=== PATIENT | male | born 1955 | race Caucasian/White ===

== ENCOUNTER 2023-09-25 13:19 | Inpatient (IN) | payer OTHER, SELFPAY ==
[2023-09-25 10:01] VITALS: BP 145/69
[2023-09-25 10:35] VITALS: BP 168/64
--- NOTE | 2023-09-25 10:41 | ED.GENMED ---
History of Present Illness
General
Chief Complaint: Skin Problem
Source: patient
Exam Limitations: none
Time Seen by Provider: 09/25/23 10:07
Nursing documentation reviewed up to this point in time: agreed with
Travel History
Have you had any contact with someone who has COVID-19?: No
Do you have any symptoms of coronavirus? Fever > 100 degrees, chills, cough, shortness of breath, sore throat, loss of taste or smell, muscle aches, or headache?: No
History of Present Illness
History of Present Illness:
68-year-old male with past medical history of diabetes hypertension hyperlipidemia previous smoker presenting to the emergency department today for concerns of redness swelling and discomfort to the left foot worsening over the past 3 days. Has had
a chronic ulcer for multiple weeks managed by podiatry but worsening over the past few days no systemic symptoms but the redness and swelling has been moving into his carrasco. Denies chest pain shortness of breath fevers or additional concerns
otherwise.
Past History
Past History
ED Past Medical History: Arrthythmia (A. fib), CHF and Other (Aortic stenosis)
ED Past Surgical History: None
Social History
Tobacco: Non-smoker
Personal: Single
Living: alone
Review of Systems
Review of Systems
Allergies reviewed?: Yes
All Other Systems: ROS reviewed and negative except as documented in HPI and ROS
Phy Exam
Physical Exam
Physical Exam:
GENERAL: Alert , in no apparent distress
EYE: pupils equal and reactive
NECK: Supple, no significant adenopathy.
ENT: o/p clr, mmm.
CARDIAC: Regular rate and rhythm .
LUNGS: Clear breath sounds bilaterally, no acute respiratory distress, no wheezes/rales/rhonchi
ABDOMEN: Soft, without focal tenderness, no r/g, no cvat
NEUROLOGICAL: Alert and oriented, no focal neuro deficits
SKIN: Ulcer to the left sole of the foot on the lateral aspect 1 cm in diameter. Warm and dry, skin intact.
MUSCULOSKELETAL: No edema, well perfused.
PSYCH: Normal and appropriate interaction.
Course
Orders/Labs/Results
Orders:
Orders
09/25/23 10:34
CR Foot - Left Min 3 Views Urgent
Comment:
Reason For Exam: foot infection
09/25/23 10:45
CRP [C-Reactive Protein] Urgent
Complete Blood Count/With Diff Urgent
Comprehensive Metabolic Panel Urgent
ESR [Erythrocyte Sed Rate] Urgent
Lactic Acid Urgent
Blood Culture Q30M
QUITA Source: Blood/Venous
Specimen Description:
Blood Culture Q30M
QUITA Source: Blood/Venous
Specimen Description:
Wound Culture [Wound/Abscess/Other Culture] Urgent
QUITA Source: Foot
Specimen Description: Left
Date Specimen was Collected: 09/25/23
Time Specimen was Collected: 10:42
09/25/23 10:51
CeFAZolin 2 GRAM [Ancef] 2 grams in 10 ml IV NOW
Abnormal Lab Results
09/25/23
10:45
WBC 13.0 H 10^3/uL
(4.8-10.8)
RBC 3.61 L 10^6/uL
(4.70-6.10)
Hgb 10.5 L g/dL
(13.0-18.0)
Hct 29.9 L %
(39.0-52.0)
RDW 14.6 H %
(11.5-14.5)
Abs Immat Gran (auto) 0.1 H 10^3/uL
(0-0.05)
Absolute Neuts (auto) 10.7 H 10^3/uL
(1.4-6.5)
Absolute Monos (auto) 0.8 H 10^3/uL
(0.1-0.6)
Immature Gran % 0.6 H %
(0-0.5)
Neutrophils % 82.6 H %
(42.2-75.2)
Lymphocytes % 9.8 L %
(20.5-51.1)
ESR 65 H mm/hour
(0-20)
BUN 38 H mg/dl
(9-20)
Creatinine 2.1 H mg/dL
(0.7-1.3)
Glucose 202 H mg/dl
(70-99)
C-Reactive Protein 204.50 H mg/L
(0.0-10.00)
09/25/23 10:45
09/25/23 10:45
Vital Signs
Initial and Last Documented VS:
Initial Vital Signs
Temp Pulse Resp BP Pulse Ox
98.3 F 58 18 145/69 98
09/25/23 10:01 09/25/23 10:01 09/25/23 10:01 09/25/23 10:01 09/25/23 10:01
Last Documented Vital Signs
Temp Pulse Resp BP Pulse Ox
98.3 F 58 18 168/64 98
09/25/23 10:01 09/25/23 10:01 09/25/23 10:01 09/25/23 10:35 09/25/23 10:01
MDM/Problems Addressed
MDM/Problems Addressed:
5-year-old male presenting to the emergency department today with concerns of infection to left foot with redness swelling throughout the foot extending into the anterior carrasco with streaking. No systemic symptoms afebrile vital signs otherwise
normal other than slightly elevated blood pressure white blood cell count of 13.0 glucose low 202 creatinine is 2.1 which is slightly above patient's baseline significantly elevated CRP. Patient's ulcer was cultured blood culture sent Case was
discussed with patient's podiatry team will manage for further treatment and monitoring.
*Critical Care Note
Total Time (30-74mins, 75-104mins- exclusive of procedures): Not Applicable
ED Attending Note
-
Portions of this chart may have been created with voice recognition software.� Occasional wrong word or��sound alike� substitutions may have occurred due to the inherent limitations of voice recognition software.
Discharge Plan
Departure
Patient Disposition: Admit
Date of Disposition: 09/25/23
Time of Disposition: 11:47
Admit to: Med/Surg
Admit to doctor: Obrien
Presentation/result/management discussed w/ accepting MD/DO: Hospitalist
Patient with high blood pressure during this ER visit?: No
Condition: Good
Covid-19: Not Applicable
Discharge Problem:
Diabetic foot ulcer, Cellulitis
Prescriptions:
No Action
metformin 1,000 MG tablet
1,000 mg PO BID
atorvastatin 40 MG tablet
40 mg PO DAILY
loratadine 10 MG tablet
10 mg PO DAILYPRN PRN (Reason: ALLERGY SYMPTOMS)
chlorthalidone 50 mg Tablet
50 mg PO DAILY
cyanocobalamin (vitamin B-12) 500 mcg Tablet
1,000 mcg PO LOUIS@2200
ferrous sulfate [FeroSul] 325 mg (65 mg iron) Tablet
325 mg PO Q48H@0800
clotrimazole-betamethasone 1-0.05 % Cream
1 applic TOPICAL DAILY
losartan 100 mg Tablet
100 mg PO HS
insulin glargine [Basaglar KwikPen U-100 Insulin] 100 unit/mL (3 mL) Insulin Pen
75 unit SC HS
Referrals:
Diandra Burr MD [Family Provider] -
Interventions
Interventions:
*Risk Screen - Suicide Last Done: 09/25/23 10:01
*General Assessment Last Done: 09/25/23 10:01
*Neglect/Abuse Screening Last Done: 09/25/23 10:01
ED-Skin Assessment Last Done: 09/25/23 10:32
Discharge Date and Time
Print Language: ROMANSH
[2023-09-25 10:55] LABS: % Basophils 0.2 % (0-2); % Eosinophils 0.4 % (0-6); % Immature Granulocytes 0.6 % (0-0.5); % Lymphocytes 9.8 % (20.5-51.1); % Monocytes 6.4 % (1.7-9.3); % Neutrophils 82.6 % (42.2-75.2); Absolute Eosinophils 0.1 10^3/uL (0-0.7); Absolute Immature Granulocytes 0.1 10^3/uL (0-0.05); Absolute Lymphocytes 1.3 10^3/uL (1.2-3.4); Absolute Monocytes 0.8 10^3/uL (0.1-0.6); Absolute Neutrophils 10.7 10^3/uL (1.4-6.5); Hematocrit 29.9 % (39.0-52.0); Hemoglobin 10.5 g/dL (13.0-18.0); Mean Corp Hgb Conc. 35.1 g/dL (33.0-37.0); Mean Corpuscular Hgb 29.1 pg (27.0-31.0); Mean Corpuscular Volume 82.8 fL (80.0-94.0); Nucleated Red Blood Cells % 0 % (-); Platelet Count 198 10^3/uL (130-400); Red Blood Cell Count 3.61 10^6/uL (4.70-6.10); Red Cell Dist. Width 14.6 % (11.5-14.5)
[2023-09-25] MEDS: ANCEF 10 IV (10:58)
[2023-09-25 11:05] LABS: Lactic Acid 1.9 mmol/L (0.7-2.0)
[2023-09-25 11:11] LABS: ALT (SGPT) 18 U/L (0-50); AST (SGOT) 18 U/L (17-59); Albumin 3.9 g/dl (3.5-5.0); Alkaline Phosphatase 84 U/L (38-126); Blood Urea Nitrogen 38 mg/dl (9-20); Calcium 8.8 mg/dl (8.4-10.2); Carbon Dioxide 24 mmol/L (22-30); Chloride 102 mmol/L (98-107); Glucose 202 mg/dl (70-99); Potassium 3.7 mmol/L (3.5-5.1); Sodium 136 mmol/L (135-145); Total Bilirubin 0.9 mg/dl (0.2-1.3); Total Protein 6.9 g/dl (6.3-8.2); eGFR 33.24
[2023-09-25 11:27] LABS: Erythrocyte Sed Rate 65 mm/hour (0-20)
--- NOTE | 2023-09-25 12:46 | HPS.HSE ---
Family Physician
-
Family Physician: Diandra Burr MD
Chief Complaint
-
Left foot swelling, redness, chills
History of Present Illness
68 yo male with DM2, neuropathy, previous left foot plantar wound infection (treated 6 yrs ago), returns with 1 month long hx left foot plantar wound. Completed a course of oral antibiotics recently, went back to see asset management lead today and referred to
ER due to ongoing symptoms and foot infection.
He has diabetic peripheral neuropathy, denies pain.
Denies fevers.
Medical History
Past Medical History
Past Medical History: Reports Other
Additional Past Medical History:
DM
Essential HTN
Hyperlipidemia
CKD 3b
Anemia
OWEN
Left 5th metatarsal osteomyelitis 2018
Past Surgical History: Reports Other
Additional Past Surgical History:
left foot surgery
Social History
Tobacco: Former Smoker
Alcohol: Occasional
Drug: None
Personal:
Living: With Family
Family History
Family History: Not pertinent
Allergies / Home Medications
Allergies reflects when Allergies were last updated in [facility].
Home Medications with original date entered in [facility]
Allergy/Medication List:
Allergies
Allergy/AdvReac Type Severity Reaction Status Date / Time
Penicillins Allergy Swelling Verified 09/25/23 10:01
trimethobenzamide Allergy Swelling Verified 09/25/23 10:01
[From [facility]]
Home Medications
metformin 1,000 mg tablet 1,000 mg PO BID 08/12/17
atorvastatin 40 mg tablet 40 mg PO DAILY 02/01/18
loratadine 10 mg tablet 10 mg PO DAILYPRN PRN ALLERGY SYMPTOMS 02/01/18
chlorthalidone 50 mg tablet 50 mg PO DAILY 09/25/23
clotrimazole-betamethasone 1 %-0.05 % topical cream 1 applic topical DAILY apply to left foot 09/25/23
cyanocobalamin (vitamin B-12) 500 mcg tablet 1,000 mcg PO LOUIS@2200 09/25/23
ferrous sulfate 325 mg (65 mg iron) tablet (FeroSul) 325 mg PO Q48H@0800 09/25/23
insulin glargine 100 unit/mL (3 mL) subcutaneous pen (Basaglar KwikPen U-100 Insulin) 75 unit SC HS 09/25/23
losartan 100 mg tablet 100 mg PO HS 09/25/23
Review of Systems
-
History Source: Patient
A 12 point ROS was completed and negative except as noted: Yes
Physical Exam
Vital Signs
Vital Signs
Temp Pulse Resp BP Pulse Ox
98.3 F 58 18 168/64 98
09/25/23 10:01 09/25/23 10:01 09/25/23 10:01 09/25/23 10:35 09/25/23 10:01
Physical Exam
General: Well Developed, Well Nourished, No Apparent Distress and Comfortable
HEENT: NormoCephalic, Anicteric and Moist mucous membranes
Respiratory: Clear
Cardiac: S1/S2 and Regular Rhythm
GI: Soft, Non Tender and Non Distended
Genito-urinary: Deferred by me
Musculoskeletal: No Clubbing, No Cyanosis and No Edema
Skin: Warm, Dry and Other (left dressing)
Neuro: AO x 3
Hematologic/Lymphatic: No Lymphadenopathy
Psych: Calm
Laboratory Results
-
09/25/23 10:45
09/25/23 10:45
Laboratory Results
Lactic Acid 1.9 mmol/L (0.7-2.0) 09/25/23 10:45
Total Bilirubin 0.9 mg/dl (0.2-1.3) 09/25/23 10:45
AST 18 U/L (17-59) 09/25/23 10:45
ALT 18 U/L (0-50) 09/25/23 10:45
Alkaline Phosphatase 84 U/L (38-126) 09/25/23 10:45
Impression/Plan
-
Left foot diabetic wound infection - no signs of sepsis. Admit to Med/surg. Broad spectrum antibx. Consult podiatry, ID. Foot x-ray shows ulceration of the soft tissues along the lateral surface of the fifth digit. No osseous abnormality to
suggest osteomyelitis. CRP concerning however, 204.
I spoke with patient and he has tolerated amoxicillin in the past without reactions. I do not believe he has a true penicillin allergy.
Check ALEISHA lower extremities to assess for PAD.
GENNARO on CKD 3B -creatinine 2.1 today. True baseline unknown but creatinine was noted to be 1.7 last year. Hold metformin, chlorthalidone, losartan. Check urinalysis. Check renal and bladder ultrasound. Recheck labs in the morning.
History of left fifth metatarsal osteomyelitis -2018.
DM2 with hyperglycemia -glucose 202 this morning. Check hemoglobin A1c. Hold metformin in light of elevated creatinine. Resume glargine insulin 75 units at bedtime, add low resistance NovoLog scale.
Diabetic peripheral neuropathy
Mixed hyperlipidemia -continue atorvastatin.
Essential hypertension -uncontrolled. We are holding chlorthalidone and losartan in light of GENNARO. Start Procardia.
Chronic anemia - normocytic. Patient states he has had extensive workup for anemia in the past without a clear diagnosis.
Obesity due to excess calories
Full code
[2023-09-25 13:36] VITALS: BP 118/57
--- NOTE | 2023-09-25 14:23 | CON.ID ---
Consultation
-
Date/Time Consultation Requested: September 25, 2023 1231
Date/Time Consultation Performed: September 25, 2023 1420
Requesting Provider: Dr. Bebeto Epperson
Performing Provider: Dr. Gilda Cheng
Reason for Consultation: Foot infection
Chief Complaint / Past History
Chief Complaint
Left foot redness and swelling
History of Present Illness
68 year old male with DM, neuropathy, CKD3b, hx of left 5th metatarsal osteo s/p resection who developed a non-healing wound on plantar side of left 5th metatarsal 4 weeks ago. His PCP prescribed an abx (he does not know name) x 10 days without
improvement. His foot progressively go more swollen and red. He saw his top collar maker who sent him to the ED. + chills, no fever.
Past History
Additional Past Medical History:
Diabetes mellitus
Retinopathy
Neuropathy
Essential HTN
Hyperlipidemia
CKD 3b
Anemia
OWEN
Left 5th metatarsal osteomyelitis s/p resection 2018
Allergy History:
Penicillins Allergy (Verified 09/25/23 10:01)
Swelling
trimethobenzamide [From [facility]] Allergy (Verified 09/25/23 10:01)
Swelling
Medications Reviewed: Yes
Current Antibiotics:
cefazolin
Social History
Tobacco: Former Smoker
Alcohol: Occasional
Drug: None
Personal:
Family History
Family History: Not Pertinent
Review of Systems
Review of Systems
General: Chills; Negative Fever
HEENT: Negative Sinus Problems or Headache
Cardiovascular: Negative Chest Pain
Respiratory: Negative Dyspnea or Cough
Gasteroenterology: Negative Nausea or Vomiting
Genital / Urological: Negative Dysuria or Flank Pain
Endocrine: Weakness
Neurological: Negative Headache or Dizziness
All systems: All other systems were reviewed and were negative
Vital Signs
Temp Pulse Resp BP Pulse Ox
98.3 F 58 18 118/57 98
09/25/23 10:01 09/25/23 10:01 09/25/23 10:01 09/25/23 13:36 09/25/23 10:01
Physical Exam
Physical Exam
Constitutional: Comfortable
Eyes: No Conjunctival Hemorrhage and Sclera Anicteric
Cardiovascular: Regular Rate and S1/S2
Pulmonary: Clear
Gastrointestinal: Soft, Non Tender, Non Distended and Normal Bowel Sounds
Genito-Urinary: Negative CVA Tenderness
Extremities: Pulses (palpable left pedal pulses)
Wound: Other (L foot 2+ edema, bright red dorsum of foot to ankle, plantar 5th metatarsal area round wound dark red tissue, no pus expressed, no deep probe)
Neurological: AO x 3
Lab / Diagnostic Study Results
09/25/23 10:45
09/25/23 10:45
Abs Immat Gran (auto) 0.1 10^3/uL (0-0.05) H 09/25/23 10:45
Absolute Neuts (auto) 10.7 10^3/uL (1.4-6.5) H 09/25/23 10:45
Absolute Lymphs (auto) 1.3 10^3/uL (1.2-3.4) 09/25/23 10:45
Absolute Monos (auto) 0.8 10^3/uL (0.1-0.6) H 09/25/23 10:45
Absolute Basos (auto) 0.0 10^3/uL (0-0.2) 09/25/23 10:45
Immature Gran % 0.6 % (0-0.5) H 09/25/23 10:45
Neutrophils % 82.6 % (42.2-75.2) H 09/25/23 10:45
Lymphocytes % 9.8 % (20.5-51.1) L 09/25/23 10:45
Monocytes % 6.4 % (1.7-9.3) 09/25/23 10:45
Eosinophils % 0.4 % (0-6) 09/25/23 10:45
Basophils % 0.2 % (0-2) 09/25/23 10:45
ESR 65 mm/hour (0-20) H 09/25/23 10:45
Lactic Acid 1.9 mmol/L (0.7-2.0) 09/25/23 10:45
C-Reactive Protein 204.50 mg/L (0.0-10.00) H 09/25/23 10:45
Microbiology Results
Micro:
09/25/23 10:45 Wound Culture - Pending
Foot - Left Gram Stain - Preliminary
09/25/23 10:45 Blood Culture - Pending
Blood/Venous
09/25/23 10:45 Blood Culture - Pending
Blood/Venous
09/25/23 L foot XRAY: There is ulceration of the soft tissues along the lateral surface of the fifth digit.
Assessment / Plan
# Left foot acute cellulitis
# Non-healing left 5th MT diabetic wound
# Leukocytosis
# GENNARO on CKD
# DM with neuropathy
- Ordered MRI left foot wo and w contrast to assess for osteo
- Treat with cefepime and metronidazole
-Follow wbc.
[2023-09-25 15:40] VITALS: BMI 34.1
[2023-09-25] MEDS: FLAGYL 500 MG PO ×2 (16:30→21:24)
[2023-09-25] MEDS: MAXIPIME 1000 MG IV (16:30)
[2023-09-25] MEDS: STERILE WATER FOR INJECTION IV (17:19)
[2023-09-25 17:34] VITALS: BP 151/62
[2023-09-25 18:16] LABS: Glucose - Point of Care 131 mg/dl (70-99)
--- NOTE | 2023-09-25 18:47 | W.CS.POD ---
Consult Summary - Podiatry
-
68 yo diabetic male known to myself from 2018 when he had Lt foot diabetic foot infection, he had 5th metatarsal head resection and did well for few yrs, He has been following up with another medical sales specialist regularly, few days ago he noticed redness,
swelling to lT foot and saw his medical sales specialist who recommended to go to ER. HE is in no acute distress, no fever, chills. His HbA1c at 8 . He does not have any diabetic shoe inserts , he has chronic non healing LT plantar ulcer .
Reviewed PMH, meds and allergies
Exam : Diminished pedal pulses b/l feet
Loss of protective sensation b/l feet
LT submet 5th with dry, necrotic ulcer with purulent drainage noted. LT foot edematous and erythematous,.
Xrays negative for any bone pathology
WBC count at 13.
A/P: LT foot cellultis/abscess
LT submet 5th non healing diabetic ulcer.
Diabetic neuropathy.
Plan : IV abx per ID
Pending non invasive vascular studies
Pending MRI of LT foot .
Discussed with patient that he may need I & d of LT foot, will wait for MRI .
Will get vascular surgery clearance after vascular studies .
Podiatry will follow
[2023-09-25] MEDS: NOVOLOG FLEXPEN-LOW RESISTANCE SC (19:46)
[2023-09-25] MEDS: HEPARIN 5000 UNITS SC (21:11)
[2023-09-25] MEDS: LANTUS 0.75 UNITS SC (21:17)
[2023-09-25 21:22] LABS: Glucose - Point of Care 167 mg/dl (70-99)
[2023-09-25 21:22] LABS: Glucose - Point of Care 166 mg/dl (70-99)
[2023-09-25 23:57] VITALS: BP 138/59
[2023-09-26] MEDS: STERILE WATER FOR INJECTION 10 ML IV ×3 (00:19→16:43)
[2023-09-26] MEDS: MAXIPIME 1000 MG IV ×3 (00:19→16:43)
--- NOTE | 2023-09-26 00:30 | PTCARENOTE ---
Pt heard loudly pounding and jumping on bed. Pt agitated and yelling at RN and PCT about 'this damn bed moving' Pt did not respond to de-escalation attempts and continued cursing at staff and threatening 'i don't care Ill break the bed' Pt was told
that this behavior is not appropriate and will not be tolerated. Nurse assembly department supervisor made aware.
[2023-09-26 06:00] VITALS: BMI 32.4
[2023-09-26 07:53] VITALS: BP 155/68
[2023-09-26 08:15] LABS: Glucose - Point of Care 76 mg/dl (70-99)
[2023-09-26 08:42] LABS: % Basophils 0.2 % (0-2); % Eosinophils 0.6 % (0-6); % Immature Granulocytes 0.4 % (0-0.5); % Lymphocytes 10.2 % (20.5-51.1); % Monocytes 7.8 % (1.7-9.3); % Neutrophils 80.8 % (42.2-75.2); Absolute Eosinophils 0.1 10^3/uL (0-0.7); Absolute Lymphocytes 1.1 10^3/uL (1.2-3.4); Absolute Monocytes 0.8 10^3/uL (0.1-0.6); Absolute Neutrophils 8.7 10^3/uL (1.4-6.5); Hematocrit 28.5 % (39.0-52.0); Hemoglobin 9.7 g/dL (13.0-18.0); Mean Corpuscular Hgb 28.7 pg (27.0-31.0); Mean Corpuscular Volume 84.3 fL (80.0-94.0); Mean Platelet Volume 10.2 fL (7.4-10.4); Nucleated Red Blood Cells % 0 % (-); Platelet Count 202 10^3/uL (130-400); Red Blood Cell Count 3.38 10^6/uL (4.70-6.10); Red Cell Dist. Width 14.1 % (11.5-14.5); White Blood Cell Count 10.8 10^3/uL (4.8-10.8)
[2023-09-26] MEDS: NOVOLOG FLEXPEN-LOW RESISTANCE SC ×2 (08:56→13:02)
[2023-09-26] MEDS: LIPITOR 40 MG PO (09:04)
[2023-09-26] MEDS: FLAGYL 500 MG PO ×3 (09:05→21:56)
[2023-09-26] MEDS: FEOSOL 325 MG PO (09:05)
[2023-09-26] MEDS: HEPARIN 5000 UNITS SC ×2 (09:05→21:56)
[2023-09-26 09:16] LABS: ALT (SGPT) 14 U/L (0-50); AST (SGOT) 19 U/L (17-59); Albumin 3.5 g/dl (3.5-5.0); Alkaline Phosphatase 73 U/L (38-126); Blood Urea Nitrogen 36 mg/dl (9-20); Calcium 8.4 mg/dl (8.4-10.2); Carbon Dioxide 23 mmol/L (22-30); Chloride 105 mmol/L (98-107); Estimated Creatinine Clearance 47 ml/min; Glucose 68 mg/dl (70-99); Sodium 136 mmol/L (135-145); Total Bilirubin 0.7 mg/dl (0.2-1.3); Total Protein 6.4 g/dl (6.3-8.2); eGFR 39.99
--- NOTE | 2023-09-26 10:56 | W.PN.HOSP.TC ---
Today's Communication/Plan
-
MRI left foot
ALEISHA
Left lower extremity venous Doppler ultrasound
Assessment / Plan
Assessment / Plan
Gen-AAOx3, NAD, obese
HEENT-NC, AT, anicteric, clear oral mm
Neck-supple
CV-reg, no M, +S1/S2
Lungs-clear B/L
Abd-soft, NT, ND
Ext-mild left lower extremity edema
Musculoskeletal-no cyanosis, clubbing
Skin-warm and dry
Neuro-grossly non-focal
Psych-calm, cooperative
Left foot diabetic wound infection - no signs of sepsis. Appreciate podiatry and ID input. Continue antibiotics per ID. Await MRI of foot to evaluate for osteomyelitis.
Check ALEISHA lower extremities to assess for PAD.
GENNARO on CKD 3B -creatinine down to 1.8 today. True baseline unknown but creatinine was noted to be 1.7 last year. Hold metformin, chlorthalidone, losartan. Check urinalysis. Renal ultrasound shows kidneys of normal size, no hydronephrosis or
mass. Small amount of postvoid residual measuring 44 cc in the bladder.
Hypokalemia -will replete orally. Check magnesium.
Left lower extremity swelling -rule out DVT. Check venous Doppler ultrasound.
History of left fifth metatarsal osteomyelitis -2018.
DM2 with hyperglycemia/hypoglycemia -glucose 68 this morning, received 75 units of Lantus last night. Will lower dose of Lantus to 50 units at bedtime starting tonight. Check hemoglobin A1c. Hold metformin in light of elevated creatinine.
Diabetic peripheral neuropathy
Mixed hyperlipidemia -continue atorvastatin.
Essential hypertension -uncontrolled. We are holding chlorthalidone and losartan in light of GENNARO. Start Procardia.
Chronic anemia - normocytic. Patient states he has had extensive workup for anemia in the past without a clear diagnosis.
Obesity due to excess calories
Full code
Anticipated Discharge: > 48 hours
Subjective/Interval History
-
Date of Service: September 26, 2023
Patient seen and examined. Complaining of sleep interruption due to his neighbor.
Objective Data
-
Labs:
Laboratory Results
09/26/23
07:58
WBC 10.8
Hgb 9.7 L
Hct 28.5 L
Plt Count 202
Sodium 136
Potassium 3.0 L
Chloride 105
Carbon Dioxide 23
BUN 36 H
Creatinine 1.8 H
Glucose 68 L
Calcium 8.4
Total Bilirubin 0.7
AST 19
ALT 14
Alkaline Phosphatase 73
Vital Signs:
Vital Signs
Temp Pulse Resp BP Pulse Ox
98.5 F 54 18 155/68 99
09/26/23 07:53 09/26/23 07:53 09/26/23 07:53 09/26/23 07:53 09/26/23 07:53
I&O
09/25/23 09/26/23 09/27/23
06:59 06:59 06:59
Intake Total 240 / 240
Balance 240 / 240
Review of Systems
-
History Source: Patient
All other systems: Reviewed and negative
[2023-09-26 11:05] LABS: Glycohemoglobin (HgbA1c) 8.7 % (4.0-5.6)
[2023-09-26 11:40] LABS: Magnesium 1.3 mg/dl (1.6-2.3)
--- NOTE | 2023-09-26 12:26 | CM ---
Reviewed chart, attempted to meet with patient however he was not in room. Placed a call to patient's however there was no answer. Left non emergent voice mail and encouraged return call when she is available.
Plan: Case management will continue to follow and assist with discharge planning. Patient appears to be independently functioning. Will attempt to f/u for assessment.
[2023-09-26] MEDS: PROCARDIA XL (EXTENDED RELEASE) 30 MG PO (12:48)
[2023-09-26] MEDS: KCL 40 MEQ PO (12:48)
[2023-09-26 12:55] LABS: Glucose - Point of Care 62 mg/dl (70-99)
[2023-09-26 13:19] LABS: Glucose - Point of Care 72 mg/dl (70-99)
--- NOTE | 2023-09-26 13:37 | W.PN.ID1 ---
Date of Service
Date of Service: September 26, 2023
Today's Communication
Continue cefepime/metronidazole.
Assessment / Plan
# Left foot acute cellulitis
# Non-healing left 5th MT diabetic wound
# Leukocytosis - resolved
# GENNARO on CKD3b, improving
# DM with neuropathy
-Prelim wound swab S. aureus
- Await MRI left foot wo and w contrast
-Await Arterial duplex studies
- Continue cefepime and metronidazole
#Additional Past Medical History:
Diabetes mellitus
Retinopathy
Neuropathy
Essential HTN
Hyperlipidemia
CKD 3b
Anemia
OWEN
Left 5th metatarsal osteomyelitis s/p resection 2017
Chief Complaint
-: Cellulitis
Vital Signs / Physical Exam
Vital Signs
Vital Signs
Temp Pulse Resp BP Pulse Ox
98.5 F 54 18 155/68 99
09/26/23 07:53 09/26/23 07:53 09/26/23 07:53 09/26/23 07:53 09/26/23 07:53
Physical Exam
Constitutional: No Acute Distress
Extremities: Edema (left foot 2+) and Erythema (left foot)
Objective Data
Lab Data
Lab Results
09/26/23 07:58
09/26/23 07:58
ESR 65 mm/hour (0-20) H 09/25/23 10:45
Estimated Creat Clear 47 ml/min 09/26/23 07:58
Lactic Acid 1.9 mmol/L (0.7-2.0) 09/25/23 10:45
Total Bilirubin 0.7 mg/dl (0.2-1.3) 09/26/23 07:58
AST 19 U/L (17-59) 09/26/23 07:58
ALT 14 U/L (0-50) 09/26/23 07:58
Alkaline Phosphatase 73 U/L (38-126) 09/26/23 07:58
C-Reactive Protein 204.50 mg/L (0.0-10.00) H 09/25/23 10:45
Most recent labs reviewed.
Micro Results:
09/25/23 10:45 Wound Culture - Preliminary
Foot - Left Staphylococcus aureus
Gram Stain - Preliminary
09/26/23 11:44 MRSA Screen - Pending
Nose
09/25/23 10:45 Blood Culture - Preliminary
Blood/Venous No Growth in 24 hours- Final report to follow
09/25/23 10:45 Blood Culture - Preliminary
Blood/Venous No Growth in 24 hours- Final report to follow
09/25/23 L foot XRAY: There is ulceration of the soft tissues along the lateral surface of the fifth digit.
[2023-09-26] MEDS: MAGNESIUM SULFATE 50 IV (14:52)
[2023-09-26 15:00] VITALS: BP 122/55
[2023-09-26 15:15] VITALS: BP 135/62
--- NOTE | 2023-09-26 16:13 | W.PN.POD ---
Today's Communication
Today's Communication
Scheduled patient for LT foot I & D 09/27/23 at 8 AM
Assessment / Plan
-
LT foot cellultis/abscess
LT submet 5th non healing diabetic ulcer.
Diabetic neuropathy.
Plan : IV abx per ID
Pending non invasive vascular studies
Pending MRI official report
Discussed with patient that he may need I & d of LT foot, will wait for MRI report.
D/W primary service, Dr. Tate
Scheduled patient for LT foot I & D tomorrow 09/27/23
Podiatry will follow
Subjective
Chief Complaint
Lt diabetic foot infection with non healing purulent ulcer
Subjective
Patient seen at bedside, doing well, no new pedal complaints, no fever, chills,
Objective
Temp Pulse Resp BP Pulse Ox
98.5 F 54 18 155/68 99
09/26/23 07:53 09/26/23 07:53 09/26/23 07:53 09/26/23 07:53 09/26/23 07:53
09/26/23 07:58
09/26/23 07:58
Vital Signs and Lab results were reviewed.
LT foot edematous, erythematous,
Diminished pedal pulses b/l feet
Loss of protective sensation b/l feet
LT submet 5th ulceration with purulent drainage noted. No foul odor, no necrosis , LT foot edematous and erythematous, no signs of any crepitus felt, no red streaking up the foot/leg, Some fluctuance noted lateral foot.
[2023-09-26 16:46] LABS: Glucose - Point of Care 221 mg/dl (70-99)
[2023-09-26] MEDS: NOVOLOG FLEXPEN-LOW RESISTANCE 2 UNITS SC (17:14)
[2023-09-26 17:32] VITALS: BP 122/55
[2023-09-26 18:31] LABS: Glucose - Point of Care 294 mg/dl (70-99)
[2023-09-26 21:54] LABS: Glucose - Point of Care 268 mg/dl (70-99)
[2023-09-26] MEDS: LANTUS 0.5 UNITS SC ×2 (21:56→21:57)
[2023-09-26] MEDS: MELATONIN 5 MG PO (21:56)
[2023-09-26 23:50] VITALS: BP 145/60
[2023-09-27] VITALS (10 sets, daily range): BP systolic 11–147; BP diastolic 54–73
[2023-09-27] MEDS: STERILE WATER FOR INJECTION 10 ML IV ×4 (00:10→23:20)
[2023-09-27] MEDS: MAXIPIME 1000 MG IV ×4 (00:10→23:20)
[2023-09-27 03:01] LABS: Glucose - Point of Care 204 mg/dl (70-99)
[2023-09-27 06:10] LABS: Glucose - Point of Care 186 mg/dl (70-99)
[2023-09-27] MEDS: NOVOLOG FLEXPEN-LOW RESISTANCE 1 UNITS SC ×2 (06:25→18:15)
[2023-09-27 07:57] LABS: % Basophils 0.2 % (0-2); % Eosinophils 0.9 % (0-6); % Immature Granulocytes 0.7 % (0-0.5); % Lymphocytes 12.2 % (20.5-51.1); % Monocytes 9.8 % (1.7-9.3); % Neutrophils 76.2 % (42.2-75.2); Absolute Eosinophils 0.1 10^3/uL (0-0.7); Absolute Immature Granulocytes 0.1 10^3/uL (0-0.05); Absolute Lymphocytes 1.1 10^3/uL (1.2-3.4); Absolute Monocytes 0.9 10^3/uL (0.1-0.6); Absolute Neutrophils 6.7 10^3/uL (1.4-6.5); Hematocrit 28.6 % (39.0-52.0); Hemoglobin 9.9 g/dL (13.0-18.0); Mean Corp Hgb Conc. 34.6 g/dL (33.0-37.0); Mean Corpuscular Hgb 28.9 pg (27.0-31.0); Mean Corpuscular Volume 83.4 fL (80.0-94.0); Mean Platelet Volume 10.1 fL (7.4-10.4); Nucleated Red Blood Cells % 0 % (-); Platelet Count 225 10^3/uL (130-400); Red Blood Cell Count 3.43 10^6/uL (4.70-6.10); Red Cell Dist. Width 14.1 % (11.5-14.5); White Blood Cell Count 8.8 10^3/uL (4.8-10.8)
[2023-09-27] MEDS: PROCARDIA XL (EXTENDED RELEASE) 30 MG PO (07:58)
[2023-09-27] MEDS: FLAGYL 500 MG PO ×3 (07:58→21:31)
[2023-09-27] MEDS: LIPITOR 40 MG PO (07:58)
[2023-09-27] MEDS: HEPARIN 5000 UNITS SC ×2 (08:00→21:30)
[2023-09-27 08:23] LABS: ALT (SGPT) 13 U/L (0-50); AST (SGOT) 19 U/L (17-59); Albumin 3.5 g/dl (3.5-5.0); Alkaline Phosphatase 70 U/L (38-126); Blood Urea Nitrogen 41 mg/dl (9-20); Calcium 8.6 mg/dl (8.4-10.2); Carbon Dioxide 25 mmol/L (22-30); Chloride 98 mmol/L (98-107); Estimated Creatinine Clearance 39 ml/min; Glucose 157 mg/dl (70-99); Potassium 4.1 mmol/L (3.5-5.1); Sodium 133 mmol/L (135-145); Total Bilirubin 0.8 mg/dl (0.2-1.3); Total Protein 6.3 g/dl (6.3-8.2); eGFR 31.43
--- NOTE | 2023-09-27 09:30 | W.SUR.POST ---
Surgical Immediate Post Op
Note
Pre Op Diagnosis: Left 5th distal metatarsal osteomyelitis with LT foot abscess
Post Op Diagnosis: Same as above
Procedure Performed: LT distal 5th metatarsal resection with partial primary closure
Primary Surgeon: Dr. Germain CORDON
Secondary Surgeons: None
Anesthesia: MAc with local block
Estimated Blood Loss: 2cc
Fluids: none
Drains/Shunts: no
Specimens/Cultures: LT 5th distal metatarsal for patho and culture with clean margin
Doppler/Duplex/Angio (Y/N): N
Complications: None
Operative Findings: No deep tissue purulence or any necrosis noted
Pt stable in PACu with stable vital signs and intact vascular status to LT foot
[2023-09-27 09:35] LABS: Glucose - Point of Care 158 mg/dl (70-99)
--- NOTE | 2023-09-27 10:40 | W.PN.HOSP.TC ---
Addendum entered and electronically signed by Bebeto Epperson DO 09/27/23 10:57:
I spoke with podiatry, she recommends holding off on PT/OT until tomorrow. She mentioned that patient needs to stay off his feet for couple days and start PT with wedge shoe and a walker or cane.
Original Note:
Today's Communication/Plan
-
Nephrology consult
Continue antibiotics
Adjust insulin
Await ALEISHA
PT/OT
Assessment / Plan
Assessment / Plan
Gen-AAOx3, NAD, obese
HEENT-NC, AT, anicteric, clear oral mm
Neck-supple
CV-reg, no M, +S1/S2
Lungs-clear B/L
Abd-soft, NT, ND
Ext-mild left lower extremity edema
Musculoskeletal-no cyanosis, clubbing
Skin-warm and dry
Neuro-grossly non-focal
Psych-calm, cooperative
Left foot diabetic wound infection/acute osteomyelitis - no signs of sepsis. Afebrile, white blood cell count normalized. Currently on IV cefepime and metronidazole per ID. Underwent left fifth metatarsal resection with primary closure today by
podiatry.
MRI of the foot confirms acute osteomyelitis involving the distal 1 cm of the fifth metatarsal deep to the ulcer.
ALEISHA lower extremities ordered, still pending.
GENNARO on CKD 3B -creatinine up to 2.2 today. Consult nephrology. True baseline unknown but creatinine was noted to be 1.7 last year. Hold metformin, chlorthalidone, losartan. Check urinalysis. Renal ultrasound shows kidneys of normal size, no
hydronephrosis or mass. Small amount of postvoid residual measuring 44 cc in the bladder.
Hypokalemia -improved.
Hypomagnesemia -repeat labs pending for today.
Left lower extremity swelling -Doppler ultrasound negative for DVT.
History of left fifth metatarsal osteomyelitis -2018.
DM2 with hyperglycemia/hypoglycemia -glucose 157 this morning. Received 50 units of Lantus last night. Hemoglobin A1c 8.7%. Hold metformin in light of elevated creatinine. Continue current dose of Lantus, add mealtime aspart, continue low
resistance NovoLog scale. Daytime glucoses over 200.
Diabetic peripheral neuropathy
Mixed hyperlipidemia -continue atorvastatin.
Essential hypertension -uncontrolled. We are holding chlorthalidone and losartan in light of GENNARO. Continue Procardia. Blood pressure improving overall.
Chronic anemia - normocytic. Patient states he has had extensive workup for anemia in the past without a clear diagnosis.
Obesity due to excess calories
Full code
PT/OT
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 I tried to explain to him again today that his health is more important than his job and we have to work on his current infection as well
as renal failure, electrolyte abnormalities, glucose control. At this point in time I do not have a discharge date in mind.
Anticipated Discharge: > 48 hours
Subjective/Interval History
-
Date of Service: September 27, 2023
Patient seen and examined. No new complaints.
Objective Data
-
Labs:
Laboratory Results
09/27/23
07:00
WBC 8.8
Hgb 9.9 L
Hct 28.6 L
Plt Count 225
Sodium 133 L
Potassium 4.1 D
Chloride 98
Carbon Dioxide 25
BUN 41 H
Creatinine 2.2 H
Glucose 157 H
Calcium 8.6
Total Bilirubin 0.8
AST 19
ALT 13
Alkaline Phosphatase 70
Vital Signs:
Vital Signs
Temp Pulse Resp BP Pulse Ox
98.0 F 60 17 135/58 100
09/27/23 10:00 09/27/23 10:00 09/27/23 10:00 09/27/23 10:00 09/27/23 10:00
I&O
09/26/23 09/27/23 09/28/23
06:59 06:59 06:59
Intake Total 240 / 240 1440 / 1440
Balance 240 / 240 1440 / 1440
Review of Systems
-
History Source: Patient
All other systems: Reviewed and negative
[2023-09-27 11:07] LABS: Magnesium 1.8 mg/dl (1.6-2.3)
[2023-09-27 11:59] LABS: Glucose - Point of Care 187 mg/dl (70-99)
--- NOTE | 2023-09-27 12:43 | W.PN.ID1 ---
Date of Service
Date of Service: September 27, 2023
Today's Communication
Continue cefepime and metronidazole
-Anticipate dc home tomorrow on po abx.
Assessment / Plan
# Left foot acute cellulitis
# Non-healing left 5th MT diabetic wound with acute osteomyelitis
# Leukocytosis - resolved
# GENNARO on CKD3b,
# DM with neuropathy
-Prelim wound swab S. aureus
-09/26 s/p LT distal 5th metatarsal resection with partial primary closure
OR cx and path pending.
- Continue cefepime and metronidazole
-Anticipate dc home tomorrow on po abx.
#Additional Past Medical History:
Diabetes mellitus
Retinopathy
Neuropathy
Essential HTN
Hyperlipidemia
CKD 3b
Anemia
OWEN
Left 5th metatarsal osteomyelitis s/p resection 2017
Chief Complaint
-: Cellulitis
Subjective / Review of Systems
Had surgery this AM.
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
Vital Signs / Physical Exam
Vital Signs
Vital Signs
Temp Pulse Resp BP Pulse Ox
97.7 F 73 18 142/59 100
09/27/23 12:00 09/27/23 12:00 09/27/23 12:00 09/27/23 12:00 09/27/23 12:00
Physical Exam
Constitutional: No Acute Distress
Gastrointestinal: Soft, Non Tender and Non Distended
Neurological: AO x 3
Objective Data
Lab Data
Lab Results
09/27/23 07:00
09/27/23 07:00
ESR 65 mm/hour (0-20) H 09/25/23 10:45
Estimated Creat Clear 39 ml/min 09/27/23 07:00
Lactic Acid 1.9 mmol/L (0.7-2.0) 09/25/23 10:45
Total Bilirubin 0.8 mg/dl (0.2-1.3) 09/27/23 07:00
AST 19 U/L (17-59) 09/27/23 07:00
ALT 13 U/L (0-50) 09/27/23 07:00
Alkaline Phosphatase 70 U/L (38-126) 09/27/23 07:00
C-Reactive Protein 204.50 mg/L (0.0-10.00) H 09/25/23 10:45
Most recent labs reviewed.
Micro Results:
09/25/23 10:45 Blood Culture - Preliminary
Blood/Venous No Growth in 48 hours- Final report to follow
09/25/23 10:45 Blood Culture - Preliminary
Blood/Venous No Growth in 48 hours- Final report to follow
09/27/23 09:30 Wound Culture - Pending
Bone Gram Stain - Pending
09/27/23 09:30 Wound Culture - Pending
Foot - Left Gram Stain - Pending
09/27/23 09:30 Anaerobic Culture - Pending
Foot - Left
09/25/23 10:45 Wound Culture - Preliminary
Foot - Left Staphylococcus aureus
Gram Stain - Preliminary
09/26/23 11:44 MRSA Screen - Pending
Nose
09/25/23 L foot XRAY: There is ulceration of the soft tissues along the lateral surface of the fifth digit.
09/26/23 MRI LLE: Soft tissue ulcer plantar to the distal 5th metatarsal shaft at the site of a previous distal 5th metatarsal amputation. Necrotic soft tissue with a possible abscess and soft tissue emphysema located along the lateral margin of the
distal 5th metatarsal shaft. Suspected acute osteomyelitis involving the distal 1.0 cm of the 5th metatarsal deep to the ulceration.
[2023-09-27] MEDS: NOVOLOG FLEXPEN-LOW RESISTANCE SC (12:45)
[2023-09-27] MEDS: NOVOLOG FLEXPEN 5 UNITS SC ×2 (13:17→18:15)
[2023-09-27 13:49] LABS: Urine Albumin Trace (Neg - Trace); Urine Bilirubin 1+ (Negative); Urine Character Slightly Cloudy (Clear); Urine Color Yellow; Urine Glucose Negative (Negative); Urine Ketone Trace (Negative); Urine Leukocyte Trace (Negative); Urine Nitrite Negative (Negative); Urine Occult Blood Negative (Negative); Urine Specific Gravity 1.025 (<1.030); Urine Urobilinogen Negative (Neg - 1+)
[2023-09-27 14:10] LABS: Urine Bacteria Moderate (Negative); Urine Red Blood Cell None Seen /HPF (0-2)
--- NOTE | 2023-09-27 14:49 | CM ---
Reviewed chart, met with patient to obtain information for assessment. Patient stated that he lives in a townhouse with his with one step to enter. He described himself as independent with his ADLs, personal care, dressing, bathing and
ambulates without device. He has a CPAP machine but denied any other DME.
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 He can drive and can get to all his appointments and do all of his own shopping. 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 He expressed that he is
anxious to leave as it is his busiest season.
Patient has had VN services through but does not want them again. (VN in general)
Patient has never been to a SNF.
He has a prescription plan and uses [facility] in [place] for all of his medications.
Patient's PCP is Diandra Meija.
Patient stated that when he is medically cleared for discharge he does not feel that he will have any needs.
Plan: Case management will continue to follow and assist with discharge planning. Patient should be no needs.
[2023-09-27] MEDS: TYLENOL 650 MG PO (17:10)
--- NOTE | 2023-09-27 17:16 | W.CON.NEPH ---
Consultation
-
Date/Time Consultation Requested: 09/27/23 1040
Date/Time Consultation Performed: 09/27/23 1730
Requesting Provider: Billy Beltran
Performing Provider: Emili Gutiérrez
Reason for Consultation: GENNARO with CKD
Medical History
-
Chief Complaint: Foot infection
History of Present Illness:
68 yo male with DM2 on metformin, neuropathy, HTN on Chlorthalidone, Losartan, HLD on statin, CKD 3b baseline cr 1.4-1.5 previous left foot plantar wound infection (treated 6 yrs ago), returns with 1 month long hx left foot plantar wound. Completed
a course of oral antibiotics recently(does not know name), went back to see furniture installer and was referred to ER due to ongoing symptoms and foot infection on 09/24. Since gary he maintained on IV abx per ID for MSSA from wound cx. MRI noted to have
osteomyelitis and he underwent 5th metatarsal resection with partial primary closure today by podiatry. Since admit cr trend 2.1-->1.8-->2.2 hence nephrology consulted. HIs Chlorthalidone and Losartan were held. Mg and K repleted, IVF started today.
BP stable with out hypotension. He reports regular use of NSAIDs for right hand arthritis pain. No CP or sob, no abd pain. No n/v. denies any dysuria. Febrile at 3pm.
Past Medical History
DM
Essential HTN
Hyperlipidemia
CKD 3b
Anemia
OWEN
Left 5th metatarsal osteomyelitis 2017
OWEN
Obesity
Past Surgical History: Other (left foot surgery)
Social History
Tobacco: Former Smoker (quit 1990)
Alcohol: Occasional
Personal:
Family History
M dies at 50, colon ca, PPM
no CKD
Family History: Not Pertinent
Allergies / Home Medications
Allergy/AdvReac Type Severity Reaction Status Date / Time
Penicillins Allergy ?Swelling Verified 09/25/23 15:37
age 1.
Tolerated
cephalosporins
trimethobenzamide Allergy Swelling Verified 09/25/23 10:01
[From [facility]]
�Medication �Instructions �Recorded �Confirmed �Type
metformin 1,000 mg tablet 1,000 mg PO BID Diabetes 08/12/17 09/25/23 History
atorvastatin 40 mg tablet 40 mg PO DAILY High Cholesterol 02/01/18 09/25/23 History
loratadine 10 mg tablet 10 mg PO DAILYPRN PRN ALLERGY 02/01/18 09/25/23 History
SYMPTOMS
chlorthalidone 50 mg tablet 50 mg PO DAILY Blood Pressure 09/25/23 09/25/23 History
clotrimazole-betamethasone 1 1 applic topical DAILY apply to 09/25/23 09/25/23 History
%-0.05 % topical cream left foot
cyanocobalamin (vitamin B-12) 500 1,000 mcg PO LOUIS@2200 Supplement 09/25/23 09/25/23 History
mcg tablet
ferrous sulfate 325 mg (65 mg 325 mg PO Q48H@0800 Supplement 09/25/23 09/25/23 History
iron) tablet (FeroSul)
insulin glargine 100 unit/mL (3 75 unit SC HS Diabetes 09/25/23 09/25/23 History
mL) subcutaneous pen (Basaglar
KwikPen U-100 Insulin)
losartan 100 mg tablet 100 mg PO HS Blood Pressure 09/25/23 09/25/23 History
Review of Systems
-
all complete 12 point ROS have been inquired and found negative other than stated in HPI
Physical Exam
Vital Signs
Vital Signs
Temp Pulse Resp BP Pulse Ox
101.1 F H 77 18 147/61 98
09/27/23 15:00 09/27/23 15:00 09/27/23 15:00 09/27/23 15:00 09/27/23 15:00
Lab Results
WBC 8.8 10^3/uL (4.8-10.8) 09/27/23 07:00
RBC 3.43 10^6/uL (4.70-6.10) L 09/27/23 07:00
Hgb 9.9 g/dL (13.0-18.0) L 09/27/23 07:00
Hct 28.6 % (39.0-52.0) L 09/27/23 07:00
Plt Count 225 10^3/uL (130-400) 09/27/23 07:00
Sodium 133 mmol/L (135-145) L 09/27/23 07:00
Potassium 4.1 mmol/L (3.5-5.1) D 09/27/23 07:00
Chloride 98 mmol/L (98-107) 09/27/23 07:00
Carbon Dioxide 25 mmol/L (22-30) 09/27/23 07:00
BUN 41 mg/dl (9-20) H 09/27/23 07:00
Creatinine 2.2 mg/dL (0.7-1.3) H 09/27/23 07:00
eGFR 31.43 09/27/23 07:00
Glucose 157 mg/dl (70-99) H 09/27/23 07:00
Calcium 8.6 mg/dl (8.4-10.2) 09/27/23 07:00
renal US:
Albumin 3.5 g/dl (3.5-5.0) 09/27/23 07:00
Renal US: 4/6
FINDINGS:
RIGHT KIDNEY: 12.1 x 5.6 x 6.3 cm. No hydronephrosis or mass.
LEFT KIDNEY: 12.1 x 5.3 x 5.6 cm. No hydronephrosis or mass.
URINARY BLADDER: Unremarkable. Prevoid volume of 231. Small amount of postvoid residual of 44 mL. Both ureteral jets were visualized.
The prostate measures 4 x 4.4 x 5.5 cm. Mildly heterogeneous, indenting the floor the bladder.
IMPRESSION:
Kidneys of normal size. No hydronephrosis or mass.
Small amount of postvoid residual. Bladder otherwise unremarkable.
MRI foot:
1. Soft tissue ulcer plantar to the distal 5th metatarsal shaft at the site of a previous distal 5th metatarsal amputation. Necrotic soft tissue with a possible abscess and soft tissue emphysema located along the lateral margin of the distal 5th
metatarsal shaft.
2. Suspected acute osteomyelitis involving the distal 1.0 cm of the 5th metatarsal deep to the ulceration.
3. Severe cellulitis in the dorsal lateral forefoot.
4. Severe acute on chronic muscle denervation throughout the left foot consistent with diabetic neuropathy.
5. Moderate arthritis in the 4th and 5th tarsometatarsal joints.
Physical Exam
General: Awake, Alert, Oriented, AOx3, No Distress and Nontoxic
HEENT: EOMI and Anicteric
Respiratory: Clear, Normal Excursion and Nonlabored Respirations
Cardiac: S1/S2 and Regular Rate/Rhythm
Abdomen: Soft, Nontender and Nondistended
Musculoskeletal: Edema (left leg 1+)
Skin: No Rash and No Cyanosis
Neuro: Nonfocal/Grossly Intact
Psych: Mood/afflect pleasant, Insight/judgement good and Appropriate
Assessment/Plan
-
IMP:
Left foot diabetic wound infection/acute osteomyelitis s/p left fifth metatarsal resection with primary closure 09/26
GENNARO on CKD 3B
Hypokalemia -improved.
Hypomagnesemia -improved
Left lower extremity swelling
History of left fifth metatarsal osteomyelitis -2018.
DM2
Diabetic peripheral neuropathy
Mixed hyperlipidemia
Essential hypertension
Chronic anemia - normocytic.
Obesity due to excess calories
PLan:
A/w nonhealing wound of left foot noted osteo and s/p 5th toe amputation today
GENNARO-UA iwth ?UTI, given that he has been on abx , check U eosinophils , renal US non acute
agree with IVF , monitor UOP and bladder scan
adjust meds renal dosing
cont to hold metformin, ARB and thiazide
avoid nephrotoxins, specially NSAIDs at home
BP stable on procardia
abx per ID, febrile today , cx done
labs in am
d/w pt and nursing
Data Reviewed
-
Radiology: Report Reviewed by me
Ultrasound: Report Reviewed by me
Labs: Labs Reviewed by me, Discussed with Nurse and Discussed with Patient
[2023-09-27 17:20] LABS: Glucose - Point of Care 193 mg/dl (70-99)
[2023-09-27 21:13] LABS: Glucose - Point of Care 185 mg/dl (70-99)
[2023-09-27] MEDS: VITAMIN B-12 1000 MCG PO (21:30)
[2023-09-27] MEDS: MELATONIN 5 MG PO ×2 (21:30)
[2023-09-27] MEDS: LANTUS 0.5 UNITS SC (21:31)
[2023-09-27] MEDS: NSS 1000 IV (23:19)
[2023-09-28 03:32] LABS: Glucose - Point of Care 136 mg/dl (70-99)
[2023-09-28 06:45] LABS: % Basophils 0.3 % (0-2); % Eosinophils 1.5 % (0-6); % Immature Granulocytes 0.3 % (0-0.5); % Lymphocytes 13.7 % (20.5-51.1); % Monocytes 9.5 % (1.7-9.3); % Neutrophils 74.7 % (42.2-75.2); Absolute Eosinophils 0.1 10^3/uL (0-0.7); Absolute Lymphocytes 1.3 10^3/uL (1.2-3.4); Absolute Monocytes 0.9 10^3/uL (0.1-0.6); Absolute Neutrophils 6.9 10^3/uL (1.4-6.5); Hematocrit 28.8 % (39.0-52.0); Hemoglobin 9.7 g/dL (13.0-18.0); Mean Corp Hgb Conc. 33.7 g/dL (33.0-37.0); Mean Corpuscular Hgb 28.4 pg (27.0-31.0); Mean Corpuscular Volume 84.2 fL (80.0-94.0); Nucleated Red Blood Cells % 0 % (-); Platelet Count 215 10^3/uL (130-400); Red Blood Cell Count 3.42 10^6/uL (4.70-6.10); White Blood Cell Count 9.3 10^3/uL (4.8-10.8)
[2023-09-28 07:00] VITALS: BP 155/65
[2023-09-28 08:04] LABS: Glucose - Point of Care 178 mg/dl (70-99)
[2023-09-28] MEDS: PROCARDIA XL (EXTENDED RELEASE) 30 MG PO (08:34)
[2023-09-28] MEDS: STERILE WATER FOR INJECTION 10 ML IV (08:36)
[2023-09-28] MEDS: HEPARIN 5000 UNITS SC (08:38)
[2023-09-28] MEDS: FLAGYL 500 MG PO (08:39)
[2023-09-28] MEDS: LIPITOR 40 MG PO (08:39)
[2023-09-28] MEDS: FEOSOL 325 MG PO (08:39)
[2023-09-28 08:40] LABS: Blood Urea Nitrogen 44 mg/dl (9-20); Calcium 8.5 mg/dl (8.4-10.2); Carbon Dioxide 21 mmol/L (22-30); Chloride 98 mmol/L (98-107); Estimated Creatinine Clearance 40 ml/min; Glucose 148 mg/dl (70-99); Potassium 3.2 mmol/L (3.5-5.1); Sodium 134 mmol/L (135-145); eGFR 33.24
[2023-09-28] MEDS: MAXIPIME 1000 MG IV (08:40)
[2023-09-28] MEDS: KCL 40 MEQ PO (09:15)
[2023-09-28] MEDS: NOVOLOG FLEXPEN-LOW RESISTANCE 1 UNITS SC (09:24)
[2023-09-28] MEDS: NOVOLOG FLEXPEN 5 UNITS SC ×2 (09:25→13:03)
--- NOTE | 2023-09-28 10:23 | PTOTSP ---
new orders received s/p 5th toe amputation. pt reports he is aware of what Darco shoe is for, able to don and doff without difficulty. pt reports he does not want any care that is not directly related to care of his wound, foot. declined need for
therapy, RN notified. of note, did observe pt in hallway ambulating without protective shoe, WBAT BLEs. will sign off per pt request.
--- NOTE | 2023-09-28 10:30 | PTOTSP ---
Attempted to see patient for PT evaluation s/p left distal 5th metatarsal resection 09/26, recommended to wear DARCO shoe with mobility. Patient very upset about his care here and does not want any care unless it is directly related to his foot/wound.
Patient reports no difficulty with donning his shoe and reports he will wear it as instructed (patient has been observed by staff this morning ambulating in the hallway without the DARCO shoe on). Patient declined working with therapy and plans to
return home. Will sign off at this time.
--- NOTE | 2023-09-28 10:48 | W.PN.POD ---
Today's Communication
Today's Communication
Patient is stable per podiatry
Assessment / Plan
-
S/P : LT 5th distal metatarsal resection with partial primary closure POD #1
LT foot cellultis- resolving
LT submet 5th non healing diabetic ulcer.
Diabetic neuropathy.
Plan : Changed surgical dressings, removed all packing, applied adaptic, dry gauze and kerlix with vani wrap
Discussed with patient that he needs to get vascular studies and vascular surgery evaluation , but he is very anxious and wants to get discharged from [facility] due to his work. I have explained very clearly about the risks and timely intervention to
save the limb, pt is eager to leave t this own risk and wants to follow up as an out patinet for all the tests and follow ups.
abx per ID
Non invasive vascular studies as out patient
I have given him vascular surgery contact info for seeing them after D/C
HE will follow up in my office for all post op care, next in my office
Daily dressing changes discussed, he wants to do it himself
Elevate foot when at rest, Wedge shoe to LT foot while ambulating with cane
Subjective
Chief Complaint
LT foot cellultis and LT foot non healing ulceration.
Subjective
Patient seen at bedside, denies nay LT foot/calf pain, HE is extremely anxious to leave and take care of his work, Some strike through bleeding in surgical dressings noted. He is walking on LT foot with out any off loading shoe.Currently no fever,
chills
Objective
Temp Pulse Resp BP Pulse Ox
98.2 F 61 19 155/65 100
09/28/23 07:00 09/28/23 08:34 09/28/23 07:00 09/28/23 08:34 09/28/23 07:00
09/28/23 06:20
09/28/23 07:59
Vital Signs and Lab results were reviewed.
LT foot edematous, erythematous to LT lateral foot. Lt foot surgical site is clean, dry, no purulence, no signs of any crepitus felt, no necrotic tissue noted, some local maceration noted.
--- NOTE | 2023-09-28 11:31 | W.PN.HOSP.TC ---
Addendum entered and electronically signed by Go Aguiar MD 09/28/23 12:39:
Time of discharge 38 minutes
Original Note:
Today's Communication/Plan
-
monitor vitals
see plan
possible dc today with outpatient f/u with consultants agree
plan for PO abx outpatient
he will be following up with pcp for ALEISHA and renal function
Assessment / Plan
Assessment / Plan
Gen-AAOx3, NAD, obese
HEENT-NC, AT, anicteric, clear oral mm
Neck-supple
CV-reg, no M, +S1/S2
Lungs-clear B/L
Abd-soft, NT, ND
Ext-mild left lower extremity edema
Musculoskeletal-vani rap
Neuro-grossly non-focal
Left foot diabetic wound infection/acute osteomyelitis - no signs of sepsis. Afebrile, white blood cell count normalized. Currently on IV cefepime and metronidazole per ID. Underwent left fifth metatarsal resection with primary closure today by
podiatry.
MRI of the foot confirms acute osteomyelitis involving the distal 1 cm of the fifth metatarsal deep to the ulcer.
ALEISHA lower extremities ordered, still pending. Patient is refusing to get it done inpatient and wants to f/u outpatient. Podiatry already given him vascular information
fever overnight; bcx pending. ID is aware that patient wants to be discharged. ID will likely transition to PO. Patient is aware of leaving and is aware of risk associated with it including infection. He does ensure that he will follow up
outpatient.
GENNARO on CKD 3B -creatinine up to 2.1 today. Consult nephrology following. True baseline unknown but creatinine was noted to be 1.7 last year. hold chlorthalidone, losartan. Patient is aware and will f/u with pcp outpatient. Small amount of
postvoid residual measuring 44 cc in the bladder.
urine eos pending
in the meantime would dc on amlodipine.
Hypokalemia -replete
Hypomagnesemia -repeat labs pending for today.
Left lower extremity swelling -Doppler ultrasound negative for DVT.
History of left fifth metatarsal osteomyelitis -2018.
DM2 with hyperglycemia/hypoglycemia -glucose 157 this morning. Received 50 units of Lantus last night. Hemoglobin A1c 8.7%. resume metformin on dc. Continue current dose of Lantus, add mealtime aspart, continue low resistance NovoLog scale.
Daytime glucoses over 200.
Diabetic peripheral neuropathy
Mixed hyperlipidemia -continue atorvastatin.
Essential hypertension -uncontrolled. We are holding chlorthalidone and losartan in light of GENNARO. Continue Procardia. Blood pressure improving overall.
Chronic anemia - normocytic. Patient states he has had extensive workup for anemia in the past without a clear diagnosis.
Obesity due to excess calories
Full code
PT/OT; patient was upset at PT staff too this morning and refused PT
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 He now wants to follow up outpatient. He has been seen by podiatry who will f/u with him closely outpatient. Contacted ID for abx. Patient
is aware to follow up with pcp for ALEISHA and his renal function.
I spent a total of 54 minutes with the patient or on the floor. More than 50% of this time involved counseling and coordination of care.
Anticipated Discharge: Today
Subjective/Interval History
-
Date of Service: September 28, 2023
denies pain
Objective Data
-
Labs:
Laboratory Results
09/28/23 09/28/23
06:20 07:59
WBC 9.3
Hgb 9.7 L
Hct 28.8 L
Plt Count 215
Sodium 134 L
Potassium 3.2 L
Chloride 98
Carbon Dioxide 21 L
BUN 44 H
Creatinine 2.1 H
Glucose 148 H
Calcium 8.5
Vital Signs:
Vital Signs
Temp Pulse Resp BP Pulse Ox
98.2 F 61 19 155/65 100
09/28/23 07:00 09/28/23 08:34 09/28/23 07:00 09/28/23 08:34 09/28/23 07:00
I&O
09/27/23 09/28/23 09/29/23
06:59 06:59 06:59
Intake Total 1440 / 1440 1460 / 1460
Balance 1440 / 1440 1460 / 1460
--- NOTE | 2023-09-28 12:19 | W.PN.ID1 ---
Date of Service
Date of Service: September 28, 2023
Today's Communication
OK to dc home. See below.
Assessment / Plan
# Fever x 1 , suspect post-op fever
# Left foot acute cellulitis
# Non-healing left 5th MT diabetic wound with acute osteomyelitis
# Leukocytosis - resolved
# GENNARO on CKD3b,
# DM with neuropathy
-09/26 s/p LT distal 5th metatarsal resection with partial primary closure
OR cx MSSA.
Path pending.
- Can dc home on doxycycline 100mg po bid x 14 days.
-Pt agrees to come back if pending blood cultures are positive.
- Also discussed IF bone path margin is not clean, he will require a course of IV abx.
He understands.
#Additional Past Medical History:
Diabetes mellitus
Retinopathy
Neuropathy
Essential HTN
Hyperlipidemia
CKD 3b
Anemia
OWEN
Left 5th metatarsal osteomyelitis s/p resection 2017
Chief Complaint
-: Cellulitis
Subjective / Review of Systems
'Fighting' to leave today.
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
Vital Signs / Physical Exam
Vital Signs
Vital Signs
Temp Pulse Resp BP Pulse Ox
98.2 F 61 19 155/65 100
09/28/23 07:00 09/28/23 08:34 09/28/23 07:00 09/28/23 08:34 09/28/23 07:00
Selected Entries
09/27/23
15:00
Temp 101.1 F H
Physical Exam
Constitutional: No Acute Distress and Comfortable
Cardiovascular: Regular Rate and S1/S2
Pulmonary: Clear
Gastrointestinal: Soft, Non Tender and Non Distended
Neurological: AO x 3
Objective Data
Lab Data
Lab Results
09/28/23 06:20
09/28/23 07:59
ESR 65 mm/hour (0-20) H 09/25/23 10:45
Estimated Creat Clear 40 ml/min 09/28/23 07:59
Lactic Acid 1.9 mmol/L (0.7-2.0) 09/25/23 10:45
Total Bilirubin 0.8 mg/dl (0.2-1.3) 09/27/23 07:00
AST 19 U/L (17-59) 09/27/23 07:00
ALT 13 U/L (0-50) 09/27/23 07:00
Alkaline Phosphatase 70 U/L (38-126) 09/27/23 07:00
C-Reactive Protein 204.50 mg/L (0.0-10.00) H 09/25/23 10:45
Most recent labs reviewed.
Micro Results:
09/25/23 10:45 Blood Culture - Preliminary
Blood/Venous No Growth in 72 hours- Final report to follow
09/25/23 10:45 Blood Culture - Preliminary
Blood/Venous No Growth in 72 hours- Final report to follow
09/27/23 09:30 Tissue Culture - Preliminary
Bone Gram Stain - Preliminary
09/27/23 09:30 Anaerobic Culture - Preliminary
Foot - Left Culture pending. Anaerobic cultures are examined after 3
days incubation. Additional information to follow.
09/27/23 09:30 Wound Culture - Preliminary
Foot - Left S aureus-Methicillin Sensitive
Gram Stain - Preliminary
09/27/23 17:25 Blood Culture - Pending
Blood/Venous
09/27/23 18:10 Blood Culture - Pending
Blood/Venous
09/26/23 11:44 MRSA Screen - Final
Nose No Methicillin Resistant Staphylococcus aureus isolated.
09/25/23 10:45 Wound Culture - Final
Foot - Left S aureus-Methicillin Sensitive
Gram Stain - Final
09/25/23 L foot XRAY: There is ulceration of the soft tissues along the lateral surface of the fifth digit.
09/26/23 MRI LLE: Soft tissue ulcer plantar to the distal 5th metatarsal shaft at the site of a previous distal 5th metatarsal amputation. Necrotic soft tissue with a possible abscess and soft tissue emphysema located along the lateral margin of the
distal 5th metatarsal shaft. Suspected acute osteomyelitis involving the distal 1.0 cm of the 5th metatarsal deep to the ulceration.
Care Review
Plan reviewed with: Physician (Dr. Aguiar)
[2023-09-28 12:27] LABS: Glucose - Point of Care 250 mg/dl (70-99)
--- NOTE | 2023-09-28 12:38 | W.DCSUMMARY ---
Discharge Summary
Discharge Data
Date of Admission: 09/25/23
Date of Discharge: 09/28/23
-
Pending Results: Yes
Hospital Course
68-year-old male with history of uncontrolled diabetes mellitus, left fifth metatarsal osteomyelitis, essential hypertension, chronic anemia, obesity, hyperlipidemia, diabetic peripheral neuropathy, CKD came to the hospital with left foot diabetic
wound infection and acute osteomyelitis. Patient was initially put on IV antibiotics by infectious disease which was later transitioned to oral upon discharge. Patient underwent left fifth metatarsal resection with primary closure by podiatry.
Patient also had an MRI done which confirmed acute osteomyelitis. Patient had blood culture, wound culture pending prior to the discharge. Patient also had ALEISHA ordered which patient refused to get it done inpatient and wanted to follow-up
outpatient. Multiple physicians including infectious disease, nephrology and podiatry all instructed patient to follow-up closely as patient wanted to be discharged. His creatinine was still elevated for which he was instructed to follow-up
closely outpatient. Patient did understand that if he has any worsening symptoms then he would need to return to the hospital. Given his elevated creatinine his chlorthalidone and losartan was held on discharge and he was discharged on nifedipine
instead for his blood pressure. Patient was given clear instructions to follow-up closely outpatient.
Discharge Plan
-
Patient Disposition: Home (Routine Discharge)
Discharge Diagnosis/Procedures: Left foot cellulitis
Nonhealing left fifth metatarsal diabetic wound with acute osteomyelitis
Acute kidney injury on chronic kidney disease
Diet: As tolerated
Activity: With assistance, As tolerated and Other activity
Additional Activity: With surgical shoe
Driving Restrictions: As prior to admission
Bathing Restrictions: None
Blood Work: BMP this week with primary care provider
Others Tests: ALEISHA with primary care provider or podiatry
Activity Restrictions/Additional Instructions:
Your chlorthalidone and losartan was held on discharge due to elevated creatinine. In the meantime we will start you on nifedipine for blood pressure
Your blood cultures are also pending for which you will follow-up with infectious disease outpatient
Referrals:
Diandra Burr MD [Family Provider] - in less than 1 week
Atilio Groves DPM [Specified Professional Personl] -
Emili Bill MD [Active] -
Gilda Cheng MD [Active] -
Prescriptions:
New
acetaminophen 325 mg Tablet
650 mg PO Q6HPRN PRN (Reason: mild pain/ fever>100.5F) Qty: 0 0RF
nifedipine 30 mg Tablet Extended Release
30 mg PO DAILY Qty: 30 0RF
doxycycline hyclate 100 mg capsule
100 mg PO BID Qty: 28 0RF
Continued
metformin 1,000 MG tablet
1,000 mg PO BID
atorvastatin 40 MG tablet
40 mg PO DAILY
loratadine 10 MG tablet
10 mg PO DAILYPRN PRN (Reason: ALLERGY SYMPTOMS)
cyanocobalamin (vitamin B-12) 500 mcg Tablet
1,000 mcg PO LOUIS@2200
ferrous sulfate [FeroSul] 325 mg (65 mg iron) Tablet
325 mg PO Q48H@0800
clotrimazole-betamethasone 1-0.05 % Cream
1 applic TOPICAL DAILY
Changed
insulin glargine [Basaglar KwikPen U-100 Insulin] 100 unit/mL (3 mL) Insulin Pen
50 unit SC HS Qty: 0 0RF
Held
chlorthalidone 50 mg Tablet
50 mg PO DAILY
Hold Instructions: Until instructed by your primary care provider
losartan 100 mg Tablet
100 mg PO HS
Hold Instructions: Until instructed by your primary care provider
Discharge Orders:
Discharge Patient (As Directed); Ordered 09/28/23
Ordered By: Go Aguiar
Discharge Date and Time
Discharge Date/Time: 09/28/23 16:06
Print Language: UPPER SORBIAN
[2023-09-28] MEDS: NOVOLOG FLEXPEN-LOW RESISTANCE 3 UNITS SC (13:03)
[2023-09-28] MEDS: NSS IV (13:07)
[2023-09-28 13:38] VITALS: BP 138/66
--- NOTE | 2023-09-28 13:46 | W.PN.NEPH.PH ---
Today's Communication / Plan
-
- pending urine eosinophils
Assessment/Plan
-
IMP:
Left foot diabetic wound infection/acute osteomyelitis s/p left fifth metatarsal resection with primary closure 09/26
GENNARO on CKD 3B
Hypokalemia -improved.
Hypomagnesemia -improved
Left lower extremity swelling
History of left fifth metatarsal osteomyelitis -2017.
DM2
Diabetic peripheral neuropathy
Mixed hyperlipidemia
Essential hypertension
Chronic anemia - normocytic.
Obesity due to excess calories
PLan:
A/w nonhealing wound of left foot noted osteo and s/p 5th toe amputation today
GENNARO-UA with ?UTI vs. AIN, given that he has been on abx --> check U eosinophils , renal US non acute
adjust meds renal dosing
cont to hold metformin, ARB and thiazide
avoid nephrotoxins, specially NSAIDs at home
BP stable on procardia
abx per ID, febrile today, cx done
patient has a worsening Cr and would like to be discharged home. i did discuss that this would not be my recommendation so we can continue workup and monitoring
if he is discharged today okay for d/c with nifedipine 30mg (home medication)
d/w patient
-
-
Date of Service: September 28, 2023
CC / HPI / ROS
-
Chief Complaint:
GENNARO
History of Present Illness:
Cr baseline 1.4-1.5, now up to 2.1
ongoing foot infection
febrile
Review of Systems:
insistent on d/c today
Labs
-
Labs:
WBC 9.3 10^3/uL (4.8-10.8) 09/28/23 06:20
RBC 3.42 10^6/uL (4.70-6.10) L 09/28/23 06:20
Hgb 9.7 g/dL (13.0-18.0) L 09/28/23 06:20
Hct 28.8 % (39.0-52.0) L 09/28/23 06:20
Plt Count 215 10^3/uL (130-400) 09/28/23 06:20
Sodium 134 mmol/L (135-145) L 09/28/23 07:59
Potassium 3.2 mmol/L (3.5-5.1) L 09/28/23 07:59
Chloride 98 mmol/L (98-107) 09/28/23 07:59
Carbon Dioxide 21 mmol/L (22-30) L 09/28/23 07:59
BUN 44 mg/dl (9-20) H 09/28/23 07:59
Creatinine 2.1 mg/dL (0.7-1.3) H 09/28/23 07:59
eGFR 33.24 09/28/23 07:59
Glucose 148 mg/dl (70-99) H 09/28/23 07:59
Calcium 8.5 mg/dl (8.4-10.2) 09/28/23 07:59
Albumin 3.5 g/dl (3.5-5.0) 09/27/23 07:00
Physical Exam
-
Vital Signs:
Vital Signs
Temp Pulse Resp BP Pulse Ox
97.9 F 66 18 138/66 99
09/28/23 13:38 09/28/23 13:38 09/28/23 13:38 09/28/23 13:38 09/28/23 13:38
Cardiovascular:: Regular rate and rhythm
Respiratory:: Bilateral: Coarse
Lung Excursion:: Normal
Abdomen:: Nontender and Soft
Bowel Sounds:: Normal
Extremity Edema:: +2: Left: and None: Right:
Liang Catheter: No
[2023-09-28 16:42] LABS: Body Fluid for Eosinophils NO EOS SEEN
== END 2023-09-28 16:06 | disposition home or self-care (01) | DRG 629 ==
LOC: 3 WEST ACU 13:19
PROVIDERS: Physician Assistant; ADMITTING PHYSICIAN Hospitalist; ATTENDING PHYSICIAN Internal Medicine; CONSULT PHYSICIAN Internal Medicine; CONSULT PHYSICIAN Internal Medicine Infectious Disease; CONSULT PHYSICIAN Podiatrist Foot & Ankle Surgery; EMERGENCY PHYSICIAN Emergency Medicine; FAMILY PHYSICIAN Student in an Organized Health Care Education/Training Program
PROC: 0QBP0ZZ Excision of Left Metatarsal, Open Approach (ICD-10-PCS; 2023-09-28)
DX: E11.621 Type 2 diabetes mellitus with foot ulcer (principal); I13.0 Hypertensive heart and chronic kidney disease with heart failure and stage 1 through stage 4 chronic kidney disease, or unspecified chronic kidney disease; L03.116 Cellulitis of left lower limb; M86.172 Other acute osteomyelitis, left ankle and foot; E11.22 Type 2 diabetes mellitus with diabetic chronic kidney disease; E11.42 Type 2 diabetes mellitus with diabetic polyneuropathy; L97.529 Non-pressure chronic ulcer of other part of left foot with unspecified severity; N17.9 Acute kidney failure, unspecified; N18.32 Chronic kidney disease, stage 3b; E66.09 Other obesity due to excess calories; Z79.4 Long term (current) use of insulin; Z68.32 Body mass index [BMI] 32.0-32.9, adult
CPT/HCPCS: 88304; 88311; 73630; 73720; 76770; 80048; 80053; 81003; 81015; 81099; 82962; 83036; 83605; 83735; 85025; 85652; 86140; 87040; 87070; 87075; 87076; 87077; 87147; 87176; 87186; 87205; 93971; 96374; 99284; A9575

== ENCOUNTER → 2023-10-12 12:17 | Outpatient (REF) | payer OTHER, SELFPAY | LOC: HWRAD 12:17 | PROVIDERS: ATTENDING PHYSICIAN Student in an Organized Health Care Education/Training Program | DX: M79.89 Other specified soft tissue disorders (principal) | CPT/HCPCS: 73130 ==

== ENCOUNTER → 2023-10-21 08:27 | Outpatient (REF) | payer OTHER, SELFPAY | LOC: RAD 08:27 | PROVIDERS: ATTENDING PHYSICIAN Podiatrist Foot & Ankle Surgery; FAMILY PHYSICIAN Student in an Organized Health Care Education/Training Program | DX: I70.293 Other atherosclerosis of native arteries of extremities, bilateral legs (principal) | CPT/HCPCS: 93922; 93925 ==

== ENCOUNTER 2024-09-16 10:25 | Outpatient (RCR) | payer BC, SELFPAY ==
[2024-09-16 10:45] VITALS: BP 137/57
[2024-09-16] MEDS: NSS 250 IV (10:57)
[2024-09-16] MEDS: VENOFER 110 MG IV (10:58)
[2024-09-16 12:15] VITALS: BP 143/65
== END 2024-09-19 08:12 | disposition home or self-care (01) ==
LOC: OID 10:25
PROVIDERS: ATTENDING PHYSICIAN Internal Medicine
DX: D50.9 Iron deficiency anemia, unspecified (principal)
CPT/HCPCS: 96365; J1756

== ENCOUNTER 2024-10-03 10:29 | Outpatient (RCR) | payer BC, SELFPAY ==
[2024-09-21 10:47] VITALS: BP 107/47
[2024-09-21] MEDS: NSS 250 IV (10:57)
[2024-09-21] MEDS: VENOFER 110 MG IV (11:00)
[2024-09-21 12:30] VITALS: BP 146/51
[2024-09-26 11:01] VITALS: BP 126/55
[2024-09-26] MEDS: VENOFER 110 MG IV (11:09)
[2024-09-26 12:30] VITALS: BP 142/67
[2024-09-28] MEDS: NSS 250 IV (13:50)
[2024-09-28] MEDS: VENOFER 110 MG IV (14:00)
[2024-09-28 14:02] VITALS: BP 158/59
[2024-09-28 15:06] VITALS: BP 154/62
[2024-10-03 10:45] VITALS: BP 145/64
[2024-10-03] MEDS: VENOFER 110 MG IV (10:53)
[2024-10-03 12:07] VITALS: BP 149/66
== END 2024-10-19 23:59 | disposition home or self-care (01) ==
LOC: OID 10:29
PROVIDERS: ATTENDING PHYSICIAN Internal Medicine
DX: D50.9 Iron deficiency anemia, unspecified (principal); E11.65 Type 2 diabetes mellitus with hyperglycemia; N18.31 Chronic kidney disease, stage 3a
CPT/HCPCS: 96365; J1756

== ENCOUNTER → 2024-11-09 14:54 | Outpatient (REF) | payer BC, SELFPAY | LOC: RAD 14:54 | PROVIDERS: ATTENDING PHYSICIAN Physician Assistant | DX: R60.9 Edema, unspecified (principal); R06.02 Shortness of breath; N18.31 Chronic kidney disease, stage 3a | CPT/HCPCS: 71046 ==

== ENCOUNTER → 2024-11-17 07:16 | Outpatient (REF) | payer BC, SELFPAY | LOC: HWRCS 07:16 | PROVIDERS: ATTENDING PHYSICIAN Student in an Organized Health Care Education/Training Program | DX: R06.02 Shortness of breath (principal); N50.89 Other specified disorders of the male genital organs; M79.89 Other specified soft tissue disorders | CPT/HCPCS: 93306 ==

== ENCOUNTER 2025-01-02 09:43 | Outpatient (RCR) | payer BC, SELFPAY | END 2025-01-02 23:59 | disposition home or self-care (01) | LOC: RPT 09:43 | PROVIDERS: ATTENDING PHYSICIAN Student in an Organized Health Care Education/Training Program | DX: I89.0 Lymphedema, not elsewhere classified (principal); Z73.6 Limitation of activities due to disability; R26.2 Difficulty in walking, not elsewhere classified | CPT/HCPCS: 97162; 97530; 97760 ==